=== PATIENT | male | born 1975 | race African-American/Black ===

== ENCOUNTER 2016-08-17 18:54 | Inpatient (IN) | payer OTHER ==
--- NOTE | ~2016-08-17 | DS ---
Unit #: [id number] #: [id number] Patient: WILL MACIEL [id number] [facility] [address] [place] [address] [id number] MR#: [id number] NAME: WILL MACIEL ROOM: 76 Age: 41 Sex: M Admission Date: 08/17/2016 : 1975 Discharge Date: 08/20/2016 Attending Physician: Epifanio Syed M.D. DISCHARGE SUMMARY REASON FOR ADMISSION Depression. DIAGNOSTIC STUDIES LABORATORY RESULTS: Remarkable for a glucose of 147. Urine drug screen positive for amphetamine and marijuana. HOSPITAL COURSE The patient was admitted to inpatient unit on 08/17/2016 and discharged on 08/20/2016. The patient was treated on the inpatient unit with chemical dependency group, expressive therapy, psychoeducation, and psychotherapy. The patient responded well with the above modalities of treatment. Subsequently, the patient was discharged with a plan to follow up in outpatient program. DISCHARGE MEDICATIONS Zyprexa 10 mg at bedtime for psychosis and Celexa 20 mg daily for depression. DISCHARGE DIAGNOSES Psychiatric: 1. Mood disorder, not otherwise specified, F32.9. 2. Psychosis, not otherwise specified, F29.0. 3. 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 Secondary diagnosis: Deferred. Medical diagnosis: None. Stressors: Psychosocial stressors. DISCHARGE INSTRUCTIONS The patient is to follow up in outpatient clinic as per social media director. CONDITION ON DISCHARGE The patient was pleasant and cooperative. Denied any psychotic symptom or any suicidal ideation. PROGNOSIS Guarded. DIET AND ACTIVITY As tolerated. Unit #: [id number] #: [id number] Patient: WILL MACIEL Dictated by... Jayson Mckee/ulises TD: 08/20/2016 21:23 JOB #: [id number] DISCHARGE SUMMARY X Epifanio Syed MD X DISCHARGE SUMMARY
--- NOTE | ~2016-08-17 | PN ---
Unit #: [id number] #: [id number] Patient: WILL MACIEL [id number] [facility] [address] [place] [address] [id number] MR#: [id number] NAME: WILL MACIEL ROOM: 76 Age: 41 Sex: M Admission Date: 08/17/2016 : 1975 Attending Physician: Epifanio Syed M.D. Admitting Physician: Jayson Mckee PROGRESS NOTES DATE OF SERVICE: 08/19/2016 DISCUSSION Mr. Black is a 41-year-old male, seen on 08/19/2016. The patient interviewed, chart reviewed, and obtained information from nursing staff. The patient reported feeling sad, depressed, withdrawn, isolative, guarded. The patient is tolerating medication fairly well; currently on Celexa, Zyprexa, and trazodone combination. The patient reports sleeping good, but is still having problem with anxiety, sad, depression. Complete review of systems unremarkable. MENTAL STATUS EXAMINATION General appearance, the patient dressed casually. Attention span and concentration, fair. Oriented in place and person. Mood and affect; sad, dysphoric, withdrawn, isolative, guarded. The patient denied any thoughts of harming self or others or any psychotic symptom. Recent and remote memory, poor. Insight and judgment, poor. DIAGNOSIS Mood disorder, not otherwise specified. ASSESSMENT AND PLAN Advised to continue with current medication and therapeutic protocol. We will monitor response to medication and make further adjustment of medication if needed. Dictated by... Jayson Mckee/ulises TD: 08/19/2016 19:44 JOB #: [id number] Unit #: [id number] #: [id number] Patient: WILL MACIEL JULIET SALAZAR NOTES X Epifanio Syed MD NOTE
--- NOTE | ~2016-08-17 | HP ---
Unit #: [id number] #: [id number] Patient: WILL MACIEL [id number] [place] [address] [id number] I MR#: [id number] NAME: WILL MACIEL ROOM: P180 Age: 41 Sex: M Admission Date: 08/17/2016 : 1975 Attending Physician: Epifanio Syed M.D. Admitting Physician: Epifanio Syed M.D. HISTORY AND PHYSICAL HISTORY OF PRESENT ILLNESS The patient is a 41-year-old male admitted to [facility] on 08/17/2016 for polysubstance use. PAST MEDICAL HISTORY 1. Substance abuse including methamphetamine and marijuana. 2. Nicotine dependence. PAST SURGICAL HISTORY The patient denies. SOCIAL HISTORY He is unemployed. He lives with his mother, smokes one pack of cigarettes daily. He uses marijuana on a daily basis and uses methamphetamine two to three times per week. FAMILY MEDICAL HISTORY Noncontributory. ALLERGIES No known drug allergies. CURRENT MEDICATIONS The patient is not on any home medications. REVIEW OF SYSTEMS CONSTITUTIONAL: No fever or chills. HEENT: Denies any sore throat, ear pain or runny nose. CARDIOVASCULAR: Denies chest pain, irregular heart rhythm or palpitations. CHEST: Denies shortness of breath or cough. No hemoptysis. GASTROINTESTINAL: Denies nausea, vomiting, diarrhea or chronic constipation. ENDOCRINE: Denies history of increased thirst or urination. No recent significant weight loss or gain. GENITOURINARY: Denies dysuria, frequency, or hematuria. SKIN: Denies any rashes. HEMATOLOGIC: Denies history of increased bleeding or bruising. MUSCULOSKELETAL: Denies any hot, swollen joints. No generalized muscle pain. NEUROLOGIC: Denies problems with vision or speech. No frequent, severe headaches. No numbness, tingling or weakness in any extremities. Denies loss of bladder or bowel control. Unit #: [id number] #: [id number] Patient: WILL MACIEL PHYSICAL EXAM GENERAL: She is awake, alert and oriented in no acute distress. VITAL SIGNS: Temperature 97.3, heart rate 67, respiration 18, blood pressure 118/78. HEIGHT: 6'2". WEIGHT: 235 pounds. SKIN: Warm and dry without rash or lesion. HEENT: Normocephalic. TMs not viewed. Oral and nasal passages clear. Conjunctivae clear. PERRLA. EOMs intact. NECK: Supple without lymphadenopathy or thyromegaly. HEART: Regular rate and rhythm without murmur. LUNGS: Clear. ABDOMEN: Soft, nontender. : Not done. EXTREMITIES: No evidence of cyanosis, clubbing or edema. Moves all without focal deficit. NEUROLOGICAL: Grossly within normal limits. Cranial Nerves: II: Visual pantoja are intact. III, IV AND : Extraocular movements are intact. Pupils are equal, round and reactive to light. V: Facial sensation is grossly normal. VII: Facial movements and expression are normal. VIII: Auditory acuity grossly intact. IX, X: Uvula is midline. Phonation is normal. XI: Patient shrugs shoulders and turns head normally. XII: Tongue protrudes in the midline. Sensory and Motor Function: Sensory and motor sensation is grossly normal. Motor: moves all extremities well. IMPRESSION 1. Psychiatric admission. 2. Polysubstance use. 3. Nicotine dependence. RECOMMENDATIONS Psychiatric per psychiatrist. MEDICAL: No contraindication to participate in facility activities. MEDICAL PROGNOSIS Good. MEDICAL CONDITION Stable Dictated by... Jarad Caicedo/rico TD: 08/19/2016 00:45 JOB #: [id number] Unit #: [id number] #: [id number] Patient: WILL MACIEL HISTORY AND PHYSICAL X GIANNA SNOW APRN X HISTORY AND PHYSICAL
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
[2016-08-18 12:34] LABS: BASOPHIL# 0.1 X10e3 (0-0.3); BASOPHIL% 0.7 % (0-2.5); EOSINOPHIL# 0.4 X10e3 (0-0.7); HEMATOCRIT 45.8 % (38.0-50.0); HEMOGLOBIN 15.8 gm/dL (13.0-16.0); LYMPHOCYTE% 37.1 % (17.0-45.0); MEAN CELL VOLUME 89.1 FL (83-96); MEAN CORPUSCULAR HEMOGLOBIN 30.7 PG (28-34); MEAN CORPUSCULAR HGB CONC 34.4 g/dL (30-36); MEAN PLATELET VOLUME 8.8 FL (6.5-11.5); MONOCYTE# 0.4 X10e3 (0-1.0); MONOCYTE% 5.2 % (3.0-12.0); NEUTROPHIL# 4.2 X10e3 (1.5-7.1); PLATELET COUNT 203 X10e3 (140-420); RED BLOOD COUNT 5.15 X10e (3.90-5.60); RED CELL DISTRIBUTION WIDTH 12.3 % (11.0-15.5); WHITE BLOOD COUNT 8.1 X10e3 (4.0-10.5)
[2016-08-18 12:35] LABS: DIFF IND NO
[2016-08-18 12:47] LABS: ALBUMIN SERUM 3.7 g/dL (3.5-5.0); ALKALINE PHOSPHATASE 78 U/L (32-92); ALT (SGPT) 13 U/L (10-40); AST (SGOT) 12 U/L (10-42); BILIRUBIN,TOTAL 0.7 mg/dL (0.2-2.0); BLOOD UREA NITROGEN 10 mg/dL (9-23); CALCIUM SERUM 9.2 mg/dL (8.4-10.2); CARBON DIOXIDE 28 mmol/L (22-31); CHLORIDE 106 mmol/L (100-111); CREATININE SERUM 0.8 mg/dL (0.6-1.4); GLOM FILT RATE Estimated ABOVE60 mL/min (>60); GLUCOSE FASTING 147 mg/dL (70-110); POTASSIUM 3.8 mmol/L (3.5-5.1); PROTEIN TOTAL SERUM 6.4 g/dL (6.0-8.3); SODIUM 140 mmol/L (135-145)
[2016-08-18 12:57] LABS: THYROID STIMULATING HORMONE 0.47 uIU/ml (0.34-5.60)
[2016-08-18 13:04] LABS: FREE THYROXIN (T4) 1.04 ng/dL (0.58-1.64)
[2016-08-19 12:38] LABS: URINE APPEARANCE CLEAR; URINE BILIRUBIN NEG (NEG); URINE BLOOD NEG (NEG); URINE COLOR YELLOW; URINE GLUCOSE 500 MG/DL (NEG); URINE KETONE NEG (NEG); URINE LEUKOCYTE ESTERASE NEG (NEG); URINE NITRATE NEG (NEG); URINE PH 5.5 (5-8); URINE PROTEIN NEG (NEG); URINE SPECIFIC GRAVITY 1.015 (1.003-1.035); URINE UROBILINOGEN 0.2 MG/DL (NEG)
[2016-08-19 13:25] LABS: AMPHETAMINE POS (NEG); BARBITURATES NEG (NEG); BENZODIAZEPINES NEG (NEG); COCAINE NEG (NEG); MARIJUANA POS (NEG); OPIATES NEG (NEG); TRICYCLIC ANTIDEPRESSANTS NEG (NEG); U METHADONE NEG (NEG)
== END 2016-08-20 14:20 | disposition home or self-care (01) | DRG 885 ==
LOC: P1E 18:54
PROVIDERS: Psychiatry & Neurology Psychiatry
DX: F39 Unspecified mood [affective] disorder (principal); F15.20 Other stimulant dependence, uncomplicated; Z56.0 Unemployment, unspecified; F17.210 Nicotine dependence, cigarettes, uncomplicated
CPT/HCPCS: 80053; 80307; 81003; 84439; 84443; 85025